=== PATIENT | male | born 1995 | race Hispanic/Latino ===

== ENCOUNTER 2019-03-04 21:13 | Emergency (ER) | payer MEDICAID ==
[2019-03-04 21:28] VITALS: BP 130/72
[2019-03-04] MEDS ORDERED: NORCO 5/325 PO STA (22:08)
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
== END 2019-03-05 00:05 | disposition home or self-care (01) ==
LOC: ED 21:13
DX: M54.2 Cervicalgia (principal); M54.9 Dorsalgia, unspecified; R51 Headache; V49.49XA Driver injured in collision with other motor vehicles in traffic accident, initial encounter; Y93.89 Activity, other specified; Y92.89 Other specified places as the place of occurrence of the external cause; Y99.8 Other external cause status
CPT/HCPCS: 70450; 72125